=== PATIENT | male | born 1955 | race African-American/Black ===

== ENCOUNTER 2019-09-18 11:46 | Emergency (ER) | payer MEDICAID ==
[~2019-09-18] VITALS: Ht 172.7 cm; Wt 56.0 kg
[~2019-09-18 11:46] MED LIST: ASPI-1497 PO; CLOP75TA4 PO; DOCU-138 PO; KEPP500 PO; LIP40 PO; NICO-645 TD
[2019-09-18 13:17] LABS: BASOPHILS % 0.5 % (0.0-2.0); EOSINOPHILS % 2.8 % (0.0-5.0); HEMATOCRIT. 42.2 % (42.0-52.0); HEMOGLOBIN. 14.4 g/dL (14.0-18.0); MEAN CORPUSCULAR HEMOGLOBIN 28.3 pg (28.0-32.0); MEAN CORPUSCULAR VOLUME 83.1 fL (80.0-94.0); MEAN PLATELET VOLUME 8.9 fl (7.4-10.4); MONOCYTES % 5.5 % (2.0-8.0); NEUTROPHILS % 77.2 % (40.0-76.0); PLATELET 245 x1000/uL (130-400); RED BLOOD CELL COUNT 5.08 mill/uL (4.7-6.1); RED CELL DISTRIBUTION WIDTH 15.4 % (11.6-14.6)
[2019-09-18 13:32] LABS: CHLORIDE 98 mEq/L (98-107)
[2019-09-18] MEDS ORDERED: DIPHENHYDRAMINE 50MG/ML VIAL IV PRN (16:00)
[2019-09-18] MEDS ORDERED: ACETAMINOPHEN 325MG TABLET PO PRN (16:00)
[2019-09-18] MEDS ORDERED: ONDANSETRON HCL 4MG/2ML INJ IV PRN (16:00)
[2019-09-18] MEDS ORDERED: IPRATROPIUM/ALBUTEROL 0.5-3(2.5)MG/3ML NEB HHN PRN (16:00)
[2019-09-18] MEDS ORDERED: CLONIDINE 0.1MG TABLET PO PRN (16:00)
[2019-09-18 16:27] LABS: PHOSPHORUS 3.9 mg/dL (2.5-4.9)
[2019-09-19 04:52] LABS: BASOPHILS % 0.5 % (0.0-2.0); EOSINOPHILS % 4.7 % (0.0-5.0); HEMATOCRIT. 40.5 % (42.0-52.0); HEMOGLOBIN. 13.8 g/dL (14.0-18.0); LYMPHOCYTES % 15.6 % (20.0-50.0); MEAN CORPUSCULAR HEMOGLOBIN 28.5 pg (28.0-32.0); MEAN CORPUSCULAR VOLUME 83.7 fL (80.0-94.0); MEAN PLATELET VOLUME 8.9 fl (7.4-10.4); MONOCYTES % 5.3 % (2.0-8.0); NEUTROPHILS % 73.9 % (40.0-76.0); PLATELET 247 x1000/uL (130-400); RED BLOOD CELL COUNT 4.84 mill/uL (4.7-6.1); RED CELL DISTRIBUTION WIDTH 15.3 % (11.6-14.6)
[2019-09-19 05:00] LABS: CHLORIDE 100 mEq/L (98-107)
[2019-09-19 05:07] LABS: LDL CHOLESTEROL 58 mg/dL (5-100)
[2019-09-19 05:08] LABS: HDL CHOLESTEROL 74 mg/dL (40-59)
[2019-09-19 11:25] VITALS: BP 125/62
[2019-09-19] MEDS ORDERED: SODIUM CHLORIDE 0.9% 1,000 ML IV SCH (12:15)
[2019-09-19] MEDS ORDERED: POTASSIUM CHLORIDE 20MEQ TABLET SR PO SCH (12:15)
[2019-09-19] MEDS ORDERED: LEVETIRACETAM 500MG TABLET PO SCH (21:00)
[2019-09-20] MEDS ORDERED: CLOPIDOGREL 75MG TABLET PO SCH (09:00)
== END 2019-09-19 12:06 | disposition left against medical advice (07) ==
LOC: ER 12:28 → EDBEDREQ 14:54 → EDBEDREQTM 14:54 → ER 09-19 12:06 → CANBEDREQ 09-19 12:14
DX: G90.8 Other disorders of autonomic nervous system (principal); N17.9 Acute kidney failure, unspecified; I69.354 Hemiplegia and hemiparesis following cerebral infarction affecting left non-dominant side; I69.320 Aphasia following cerebral infarction; E87.1 Hypo-osmolality and hyponatremia; I12.9 Hypertensive chronic kidney disease with stage 1 through stage 4 chronic kidney disease, or unspecified chronic kidney disease; N18.9 Chronic kidney disease, unspecified; M48.061 Spinal stenosis, lumbar region without neurogenic claudication; M48.02 Spinal stenosis, cervical region; R29.6 Repeated falls; R90.82 White matter disease, unspecified; M25.551 Pain in right hip; M25.552 Pain in left hip; E78.00 Pure hypercholesterolemia, unspecified; Z79.02 Long term (current) use of antithrombotics/antiplatelets; F19.11 Other psychoactive substance abuse, in remission; Z79.899 Other long term (current) drug therapy; Z79.82 Long term (current) use of aspirin
CPT/HCPCS: 36415; 71045; 80053; 80061; 83036; 83605; 83735; 83880; 84100; 84443; 84484; 85025; 93005; 93970; 99285